=== PATIENT | female | born 1980 | race Caucasian/White ===

== ENCOUNTER 2024-04-20 16:19 | Emergency (ER) | payer MEDICAID ==
[~2024-04-20] VITALS: Ht 195.6 cm; Wt 63.5 kg
[2024-04-20 16:27] VITALS: TEMP 98.7; O2SAT 99
[2024-04-20] MEDS: IBUPROFEN 600MG TABLET PO ONE (16:45)
[2024-04-20 18:28] VITALS: BP 121/78; PULSE 79; RESP 16
== END 2024-04-20 18:30 | disposition home or self-care (01) ==
LOC: ER 16:19
DX: M79.675 Pain in left toe(s) (principal)
CPT/HCPCS: 73630; 81025; 99283

== ENCOUNTER 2024-07-10 06:15 | Emergency (ER) | payer MEDICAID ==
[~2024-07-10] VITALS: Ht 170.2 cm; Wt 64.0 kg
[2024-07-10 06:36] VITALS: O2SAT 99
[2024-07-10] MEDS ORDERED: TOPUD MT (06:51)
[2024-07-10] MEDS: ACETAMINOPHEN 325MG TABLET PO ONE (07:07)
[2024-07-10 07:14] VITALS: BP 122/62; PULSE 74; RESP 16; TEMP 36.66960; O2SAT 99
== END 2024-07-10 07:16 | disposition home or self-care (01) ==
LOC: ER 06:15
DX: M54.50 Low back pain, unspecified (principal)
CPT/HCPCS: 99282